=== PATIENT | male | born 1940 | race Caucasian/White ===

== ENCOUNTER 2023-06-29 18:28 | Inpatient (IN) | payer OTHER ==
[2023-06-29 20:28] LABS: Absolute Basophils 0.1 K/uL (0-0.5); Absolute Eosinophils 0.1 K/uL (0-0.5); Absolute Lymphocytes (CBC) 1.1 K/uL (0.7-4.9); Absolute Monocytes 1.3 K/uL (0.1-1.3); Absolute Neutrophil 11.1 K/uL (1.8-8.0); Basophils % 0.7 % (0-1.3); Eosinophils % 0.6 % (0-4.4); Hematocrit 45.4 % (39.6-49.0); Hemoglobin 15.3 g/dL (13.6-17.9); Lymphocytes % 8.2 % (15.3-44.8); MCH 29.7 pg (27.0-35.0); MCHC 33.7 g/dL (32.0-36.0); MCV 88.4 fL (80-100); MPV 9.2 fL (7.6-11.3); Monocytes % 9.3 % (3.3-12.3); Neutrophils % 81.2 % (41.7-73.7); Nucleated Red Blood Cells % 0.1 % (0-0); Platelets 220 thou/uL (152-406); RBC Red Blood Cell Count 5.14 M/uL (4.33-5.43); Red Cell Distribution Width 14.2 % (12.1-15.2)
[2023-06-29 20:30] LABS: Protime INR 1.85
[2023-06-29 20:48] LABS: Albumin 3.2 g/dL (3.4-5.0); Albumin/Globulin Ratio 0.7 (1.1-1.8); Anion Gap 14.3 mEq/L (5.0-15.0); Bilirubin Direct 0.2 mg/dL (0-0.2); Bilirubin Indirect, Calculated 0.2 mg/dL (0.2-0.8); Bilirubin Total 0.4 mg/dL (0.2-1.0); Globulin 4.6 g/dL (2.3-3.5); Magnesium 2.2 mg/dL (1.6-2.4); Potassium 4.3 mEq/L (3.5-5.1); Protein, Total 7.8 g/dL (6.4-8.2)
[2023-06-29 20:52] LABS: Troponin High Sensitivity 88.8 pg/mL (<58.9)
--- NOTE | 2023-06-29 21:05 | ER ---
Nurse's Notes [facility] Name: Lucho Roberts Age: 83 yrs Sex: Male : 1940 Arrival Date: 06/29/2023 Time: 18:28 Bed 9 Private MD: Crow Ramirez Diagnosis: Acute kidney failure, unspecified Presentation: 06/28 19:19 Chief complaint: Spouse and/or significant other states: WENT TO SEE HIS DOCTOR TO [facility] DISCUSS LAB WORK HE HAD DONE LAST WEEK. SAID HIS KIDNEY FUNCTION WAS BAD AND HE NEEDED TO BE ADMITTED TO THE HOSPITAL. GO TO THE ER TO GET ADMITTED. Coronavirus screen: At this time, the client does not indicate any symptoms associated with coronavirus-19. Ebola Screen: No symptoms or risks identified at this time. Initial Sepsis Screen: Does the patient meet any 2 criteria? No. Patient's initial sepsis screen is negative. Does the patient have a suspected source of infection? No. Patient's initial sepsis screen is negative. Risk Assessment: Do you want to hurt yourself or someone else? Patient reports no desire to harm self or others. 19:19 Method Of Arrival: Wheelchair jj7 19:19 Acuity: ODNTE 3 jj7 22:42 Onset of symptoms was June 29, 2023. kd3 Triage Assessment: 19:24 General: Appears in no apparent distress. comfortable, Behavior is calm, cooperative, jj7 appropriate for age. Historical: - Allergies: 19:23 No Known Allergies; jj7 - PMHx: 19:23 Congestive heart failure; Hypertensive disorder; HIGH CHOLESTEROL (Hypertensive jj7 disorder); Diabetes mellitus; - PSHx: 19:24 BACK; Appendectomy; NECK; LEFT KNEE REPLACEMENT; jj7 - Immunization history:: Client reports receiving the 2nd dose of the Covid vaccine, Pneumococcal vaccine is up to date, Flu vaccine is up to date. - Social history:: Smoking status: Patient denies any tobacco usage or history of. Patient/guardian denies using alcohol, street drugs, IV drugs. Screenin:16 [facility] ED Fall Risk Assessment (Adult) History of falling in the last 3 months, cp4 including since admission No falls in past 3 months (0 pts) Confusion or Disorientation No (0 pts) Intoxicated or Sedated No (0 pts) Impaired Gait No (0 pts) Mobility Assist Device Used No (0 pt) Altered Elimination No (0 pt) Score/Fall Risk Level 0 - 2 = Low Risk Oriented to surroundings, Maintained a safe environment, Assessed \T\ reinforced patient's understanding of fall precautions, Hourly rounding (assess needs \T\ fall precautionary measures) done. Abuse screen: Denies threats or abuse. Nutritional screening: No deficits noted. Tuberculosis screening: No symptoms or risk factors identified. Assessment: 20:16 General: Appears in no apparent distress. Behavior is calm, cooperative, appropriate cp4 for age. Pain: Denies pain. : No deficits noted. 22:40 Neuro: Level of Consciousness is awake, alert, obeys commands, Oriented to person, kd3 place, time, situation. Cardiovascular: Patient's skin is warm and dry. Respiratory: Airway is patent Trachea midline Respiratory effort is even, unlabored, Respiratory pattern is regular, symmetrical. 06/29 00:04 General: Appears in no apparent distress. Behavior is calm, cooperative, appropriate kd3 for age. Neuro: Level of Consciousness is awake, alert, obeys commands, Oriented to person, place, time, situation. Cardiovascular: Patient's skin is warm and dry. Respiratory: Airway is patent Trachea midline Respiratory effort is even, unlabored, Respiratory pattern is regular, symmetrical. Vital Signs: 06/28 19:19 BP 119 / 79; Pulse 59; Resp 17; Temp 97.8; Pulse Ox 99% ; Weight 127.01 kg; Height 6 jj7 ft. 3 in. ; 23:01 BP 128 / 77; Pulse 84; Resp 19; Pulse Ox 98% on R/A; kd3 06/29 00:05 BP 138 / 77; Pulse 98; Resp 19; Pulse Ox 99% on R/A; kd3 06/28 19:19 Body Mass Index 35.00 (127.01 kg, 190.5 cm) j7 ED Course: 06/28 18:30 Patient arrived in ED. rg4 18:30 Crow Ramirez DO is Private Physician. rg4 19:23 Triage completed. jj7 19:24 Arm band placed on right wrist. jj7 19:31 Lucina Berkowitz PA-C is [facility]. sb4 19:31 Jasen Arauz MD is Attending Physician. sb4 19:48 Inserted saline lock: 20 gauge in right forearm, using aseptic technique. Blood kd3 collected. 19:52 Laurie Bach is Primary Nurse. cp4 20:06 Basic Metabolic Panel Sent. kd3 20:06 CBC with Diff Sent. kd3 20:06 LFT's Sent. kd3 20:06 Magnesium Sent. kd3 20:06 NT PRO-BNP Sent. kd3 20:06 PT-INR Sent. kd3 20:06 Troponin HS Sent. kd3 20:06 Initial lab(s) drawn, by me, sent to lab. EKG done, by ED staff, reviewed by Lucina Berkowitz PA-C. 20:16 Bed in low position. Call light in reach. Side rails up X 1. cp4 20:16 No provider procedures requiring assistance completed. cp4 20:35 XRAY Chest (1 view) In Process Unspecified. EDMS 21:05 Carlos Ramos MD is Hospitalizing Provider. sb4 22:02 US Rp Exam Complete In Process Unspecified. EDMS 22:41 Provided Education on: asthma . kd3 22:41 IV discontinued, intact, bleeding controlled, No redness/swelling at site. Pressure kd3 dressing applied. 23:01 UAM Sent. kd3 Administered Medications: No medications were administered Medication: 20:16 VIS not applicable for this client. cp4 Outcome: 21:05 Decision to Hospitalize by Provider. sb4 22:41 Discharged to home with family, kd3 22:41 Condition: stable 22:41 Discharge instructions given to patient, family, Instructed on discharge instructions, follow up and referral plans. Demonstrated understanding of instructions, follow-up care, medications, Prescriptions given X 4, 06/29 00:34 Patient left the ED. kd3 Signatures: Dispatcher [employer] EDMS Felicia Aguilar rg4 Agnes Valenzuela RN RN kd3 Naomi Guerrero RN RN Lucina Keating PA-C PA-C sb4 Laurie Bach cp4
--- NOTE | 2023-06-29 21:06 | EDPHYS ---
Physician Documentation [facility] Name: Lucho Roberts Age: 83 yrs Sex: Male : 1940 Arrival Date: 06/29/2023 Time: 18:28 Bed 9 Private MD: Crow Ramirez ED Physician Jasen Arauz HPI: 06/28 20:18 This 83 yrs old Male presents to ER via Wheelchair with complaints of Abnormal Lab sb4 Results. 20:18 Patient had routine blood work done about a week ago and today went in to discuss the sb4 results. He was noted to have a creatinine of 5. states that he has been extremely weak today. Lab results also showed a UTI, which has not been treated with antibiotics yet. Patient has no specific complaints at this time, just reports feeling generally unwell. Historical: - Allergies: 19:23 No Known Allergies; jj7 - PMHx: 19:23 Congestive heart failure; Hypertensive disorder; HIGH CHOLESTEROL (Hypertensive jj7 disorder); Diabetes mellitus; - PSHx: 19:24 BACK; Appendectomy; NECK; LEFT KNEE REPLACEMENT; jj7 - Immunization history:: Client reports receiving the 2nd dose of the Covid vaccine, Pneumococcal vaccine is up to date, Flu vaccine is up to date. - Social history:: Smoking status: Patient denies any tobacco usage or history of. Patient/guardian denies using alcohol, street drugs, IV drugs. ROS: 20:18 Cardiovascular: Negative for chest pain, palpitations, and edema, sb4 20:18 Constitutional: Positive for fatigue, malaise, 20:18 All other systems are negative, Exam: 20:18 Constitutional: This is a well developed, well nourished patient who is awake, alert, sb4 and in no acute distress. Head/Face: Normocephalic, atraumatic. Eyes: Extra-ocular motions intact. Periorbital areas with no swelling, redness, or edema. ENT: Mucous membranes moist. Cardiovascular: Regular rate and rhythm with a normal S1 and S2. Respiratory: Lungs have equal breath sounds bilaterally, clear to auscultation and percussion. No rales, rhonchi or wheezes noted. No increased work of breathing, no retractions or nasal flaring. Abdomen/GI: Soft, non-tender, no distension. Skin: Warm, dry with normal turgor. Normal color with no rashes, no lesions, and no evidence of cellulitis. MS/ Extremity: Pulses equal, no cyanosis. Neurovascular intact. Full, normal range of motion. Neuro: Awake and alert, GCS 15, oriented to person, place, time, and situation. Motor strength 5/5 in all extremities. Sensory grossly intact. Vital Signs: 19:19 BP 119 / 79; Pulse 59; Resp 17; Temp 97.8; Pulse Ox 99% ; Weight 127.01 kg; Height 6 7 ft. 3 in. ; 23:01 BP 128 / 77; Pulse 84; Resp 19; Pulse Ox 98% on R/A; kd3 06/29 00:05 BP 138 / 77; Pulse 98; Resp 19; Pulse Ox 99% on R/A; kd3 06/28 19:19 Body Mass Index 35.00 (127.01 kg, 190.5 cm) [facility] MDM: 06/28 19:31 Patient medically screened. sb4 21:01 Data reviewed: vital signs, nurses notes, lab test result(s), EKG, radiologic studies, sb4 and as a result, I will admit patient. Consideration of Admission/Observation Patient was admitted/placed on observation. Counseling: I had a detailed discussion with the patient and/or guardian regarding the historical points, exam findings, and any diagnostic results supporting the discharge/admit diagnosis, lab results, radiology results, the need for further work-up and treatment in the hospital. 06/28 19:48 Order name: Basic Metabolic Panel; Complete Time: 20:53 sb4 06/28 19:48 Order name: CBC with Diff; Complete Time: 20:31 sb4 06/28 19:48 Order name: LFT's; Complete Time: 20:53 sb4 06/28 19:48 Order name: Magnesium; Complete Time: 20:53 sb4 06/28 19:48 Order name: NT PRO-BNP; Complete Time: 20:53 sb4 06/28 19:48 Order name: PT-INR; Complete Time: 20:31 sb4 06/28 19:48 Order name: Troponin HS; Complete Time: 20:53 sb4 06/28 19:48 Order name: UAM; Complete Time: 23:25 sb4 06/28 23:09 Order name: CBC with Automated Diff EDMS 06/28 23:09 Order name: CBC with Automated Diff [facility] 06/28 23:09 Order name: Comprehensive Metabolic Panel [facility] 06/28 23:09 Order name: Comprehensive Metabolic Panel [facility] 06/28 23:09 Order name: Lactate w/ 2H reflex if indic. EDMS 06/28 23:09 Order name: Lactate w/ 2H reflex if indic. [facility] 06/28 23:09 Order name: Protime (+INR) [facility] 06/28 23:09 Order name: Protime (+INR) [facility] 06/28 23:09 Order name: PTT, Activated Partial Thromb EDMS 06/28 23:09 Order name: PTT, Activated Partial Thromb [facility] 06/28 23:09 Order name: Troponin High Sensitivity [facility] 06/28 23:09 Order name: Troponin High Sensitivity [facility] 06/28 23:09 Order name: Uric Acid [facility] 06/28 23:09 Order name: Uric Acid [facility] 06/28 19:48 Order name: XRAY Chest (1 view); Complete Time: 22:14 sb4 06/28 21:03 Order name: US Rp Exam Complete; Complete Time: 22:30 sb4 06/28 19:48 Order name: EKG; Complete Time: 19:49 sb4 06/28 23:09 Order name: CONS Physician Consult [facility] 06/28 19:48 Order name: EKG - Nurse/Tech; Complete Time: 20:06 sb4 06/28 19:48 Order name: IV Saline Lock; Complete Time: 19:52 sb4 06/28 19:48 Order name: Labs collected and sent; Complete Time: 20:06 sb4 EC:18 Rate is 92 beats/min. Rhythm is irregularly irregular, A fib. QRS interval is normal at sb4 108 msec. QT interval is normal at 372 msec. No Q waves. T waves are Normal. No ST changes noted. Clinical impression: Atrial Fibrillation and No evidence of ischemia. Interpreted by me. Reviewed by me. Administered Medications: No medications were administered Disposition Summary: 06/29/23 21:05 Hospitalization Ordered Notes: Hospitalization Status: Inpatient Admission sb4 Provider: Carlos Ramos4 Location: Telemetry/MedSurg (Inpatient) sb4 Condition: Fair sb4 Problem: new sb4 Symptoms: are unchanged sb4 Bed/Room Type: Standard sb4 Room Assignment: 420(06/29/23 23:22) rv1 Diagnosis - Acute kidney failure, unspecified sb4 Forms: - Medication Reconciliation Form sb4 - SBAR form sb4 - Leadership Thank You Letter sb4 Signatures: Dispatcher [employer] Naomi Holloway RN RN jj7 Lucina Berkowitz, CHON GIVENS sb4 Zhanna Benavides rv1 Corrections: (The following items were deleted from the chart) 23: 21:05 sb4 rv1 06/29 00:04 06/28 23:03 Clara ordered. sb4 sb4
--- NOTE | 2023-06-29 22:14 | RAD REPORT ---
EXAM DESCRIPTION: Khoi Single View06/29/2023 8:33 pm CLINICAL HISTORY: CHEST PAIN COMPARISON: Abdomen 1 View (KUB) dated 11/09/2015 TECHNIQUE: Portable AP view of the chest. FINDINGS: The lungs are clear. No pneumothorax or effusion. The cardiomediastinal contours are unre markable. IMPRESSION: No acute cardiopulmonary process.
--- NOTE | 2023-06-29 22:27 | RAD REPORT ---
EXAM DESCRIPTION: US - Renal Ultrasound-Complete - 06/29/2023 10:00 pm CLINICAL HISTORY: rule out obstruction COMPARISON: Abdomen Pelvis Wo Contrast dated 10/31/2015 TECHNIQUE: Sonographic grayscale and color flow images of the kidneys and bladder were obtained. FINDINGS: Both kidneys are small in size specially on the right, with diffusely increased cortical e chogenicity and poor corticomedullary differentiation. The right kidney measures 5.8 cm in long axis. No hydronephrosis, focal mass, or echogenic calculi. The left kidney measures 8.9 cm in long axis. Parapelvic 1.8 cm anechoic cyst. No hydronephrosis, foc al mass, or echogenic calculi. The urinary bladder is without gross abnormality seen. Moderate prostatomegaly. IMPRESSION: Atrophic changes of the kidneys with increased cortical echogenicity, findings suggestiv e of chronic renal disease.
--- NOTE | 2023-06-29 23:02 | P.HP ---
Certification for Inpatient Patient admitted to: Inpatient With expected LOS: >2 Midnights Patient will require the following post-hospital care: None Practitioner: I am a practitioner with admitting privileges, knowledge of patient current condition, hospital course, and medical plan of care. Services: Services provided to patient in accordance with Admission requirements found in Title 42 Section 412.3 of the Code of Federal Regulations Patient History Date of Service: 06/29/23 Reason for admission: Acute kidney injury Allergies No Known Allergies Allergy (Verified 06/30/23 00:34) - Past Medical/Surgical History -: Chronic kidney disease -: History of hypertension -: History of hyperlipidemia -: History of type 2 diabetes -: History of congestive heart failure -: Back surgery -: Neck surgery -: Knee surgery -: Appendectomy -: Left knee replacement - Family History Father Family History: Reviewed- Non-Contributory - Social History Smoking Status: Former smoker Alcohol use: No CD- Drugs: No Review of Systems 10-point ROS is otherwise unremarkable Physical Examination - Vital Signs Temperature: 98 F Blood Pressure: 150/80 Pulse: 90 Respirations: 18 Pulse Ox (%): 96 - Physical Exam General: Alert, In no apparent distress, Oriented x3 HEENT: Atraumatic, PERRLA, Mucous membr. moist/pink, EOMI, Sclerae nonicteric Neck: Supple, 2+ carotid pulse no bruit, No LAD, Without JVD or thyroid abnormality Respiratory: Clear to auscultation bilaterally, Normal air movement Cardiovascular: Regular rate/rhythm, Normal S1 S2, Systolic murmur Gastrointestinal: Normal bowel sounds, Soft and benign, Non-distended, No tenderness Musculoskeletal: No clubbing, No swelling, No tenderness Integumentary: No rashes Neurological: Normal gait, Normal speech, Normal strength at 5/5 x4 extr, Normal tone, Sensation intact, Cranial nerves 3-12 intact, Normal affect Lymphatics: No axilla or inguinal lymphadenopathy - Studies Laboratory Data (last 24 hrs) 06/29/23 06/29/23 06/29/23 20:00 20:00 20:00 WBC 13.70 H Hgb 15.3 Hct 45.4 Plt Count 220 PT 20.0 H INR 1.85 Sodium 139 Potassium 4.3 BUN 74 H Creatinine 5.59 H Glucose 180 H Magnesium 2.2 Total Bilirubin 0.4 AST 78 H ALT 78 H Alkaline Phosphatase 118 H Assessment & Plan - Problems (Diagnosis) (1) KIKI (acute kidney injury) Current Visit: Yes Status: Acute (2) CKD (chronic kidney disease) stage 3, GFR 30-59 ml/min Current Visit: Yes Status: Acute (3) HTN (hypertension) Current Visit: Yes Status: Acute (4) CHF (congestive heart failure) Current Visit: Yes Status: Acute (5) Type 2 diabetes mellitus Current Visit: Yes Status: Acute (6) NSTEMI (non-ST elevated myocardial infarction) Current Visit: Yes Status: Acute - Plan Plan: 1. Acute on chronic kidney failure; continue with IV fluids and will get a renal ultrasound. Will place a Elizabeth catheter and will get strict I's and O's. Nephrology consultation as well. We will check urine analysis at this time. 2. History of hypertension; continue with antihypertensives 3. History of type 2 diabetes; strict blood sugar control 4. History of heart failure with diastolic dysfunction/HFpEF; continue with diuretics 5. Elevated troponin; most likely type II myocardial infarction. Will consult cardiology for further evaluation patient denies any chest pain. 6. GI and DVT prophylaxis Discharge Plan: Home Plan to discharge in: 24 Hours - Advance Directives Does patient have a Living Will: No Does patient have a Durable POA for Healthcare: No - Code Status/Comfort Care Code Status Assessed: Yes Code Status: Full Code Critical Care: No Time Spent Managing PTS Care (In Minutes): 45
[2023-06-29] MEDS ORDERED: ACETAMINOPHEN 500 MG TAB PO PRN (23:03)
[2023-06-29] MEDS ORDERED: ONDANSETRON 4 MG/2 ML VIAL IV PRN (23:03)
[2023-06-29 23:23] LABS: Specific Gravity 1.016 (1.005-1.030); Sqamous Epithelial <5 /HPF (None Seen); Urine Bacteria <20 /HPF (<20); Urine Bilirubin NEGATIVE (Negative); Urine Blood 3+ (Negative); Urine Clarity Extremely Turbid (Clear); Urine Color Light-Orange (Yellow); Urine Culture Reflex Order NOT NEEDED; Urine Glucose TRACE (Negative); Urine Granular Casts 0-5 /LPF (None Seen); Urine Ketones NEGATIVE (Negative); Urine Micro Reflex YN NO BILL MICROSCOPIC; Urine Mucus 1+ /HPF (None Seen); Urine Nitrite NEGATIVE (Negative); Urine Protein 2+ (Negative); Urine Urobilinogen Normal (Normal); Urine WBC <5 /HPF (<5); Urine pH 5.5 (5.0-7.0)
[2023-06-30] MEDS: NA CHLORIDE 0.9% 1,000 ML IV SCH (01:58)
[2023-06-30] MEDS: MORPHINE 2 MG/ML SYR IV PRN (05:18)
[2023-06-30 07:57] LABS: Absolute Basophils 0.1 K/uL (0-0.5); Absolute Eosinophils 0.1 K/uL (0-0.5); Absolute Lymphocytes (CBC) 1.5 K/uL (0.7-4.9); Absolute Monocytes 1.4 K/uL (0.1-1.3); Absolute Neutrophil 8.6 K/uL (1.8-8.0); Basophils % 0.7 % (0-1.3); Hematocrit 42.1 % (39.6-49.0); Hemoglobin 14.3 g/dL (13.6-17.9); Lymphocytes % 12.6 % (15.3-44.8); MCH 29.9 pg (27.0-35.0); MCHC 33.9 g/dL (32.0-36.0); MCV 88.2 fL (80-100); MPV 8.4 fL (7.6-11.3); Monocytes % 12.1 % (3.3-12.3); Neutrophils % 73.6 % (41.7-73.7); Platelets 200 thou/uL (152-406); RBC Red Blood Cell Count 4.77 M/uL (4.33-5.43); Red Cell Distribution Width 14.4 % (12.1-15.2)
[2023-06-30 08:01] LABS: PT Prothrombin Time 18.3 SECONDS (9.5-12.5); PTT, Activated Partial Thromb 34.2 SECONDS (24.3-36.9); Protime INR 1.69
[2023-06-30 08:22] LABS: Albumin 2.9 g/dL (3.4-5.0); Albumin/Globulin Ratio 0.7 (1.1-1.8); Anion Gap 12.7 mEq/L (5.0-15.0); Bilirubin Total 0.4 mg/dL (0.2-1.0); Globulin 3.9 g/dL (2.3-3.5); Potassium 3.7 mEq/L (3.5-5.1); Protein, Total 6.8 g/dL (6.4-8.2); Uric Acid 3.8 mg/dL (3.5-7.2)
[2023-06-30 08:34] LABS: Troponin High Sensitivity 199.8 pg/mL (<58.9)
[2023-06-30] MEDS ORDERED: INFLUENZA VACCINE (for 6+ mo) 0.5 ML DOSE IMVAC ONE (09:00)
[2023-06-30] MEDS ORDERED: PNEUMOCOCCAL VACCINE 0.5 ML IMVAC ONE (09:00)
--- NOTE | 2023-06-30 09:47 | P.PN ---
Date of Service: 06/30/23 Subjective: denies chest pain. reports h/o afib states his legs were giving out under him, feeling weak nocturia - ~3-4x/night; no hesitancy in the past ROS: 10 point ROS as noted above, otherwise negative Physical Exam: GEN: Alert, oriented, NAD HEENT: Normal conjunctiva, sclera anicteric, CV: irregularly irregular rhythm, trace b/l pedal edema Pulm: Nonlabored respirations on room air, clear bilaterally ABD: soft, nontender, nondistended Integumentary: No rashes Neuro: Normal speech, normal affect Problem List: KIKI on CKD3, unclear etiology NSTEMI, suspect demand ischemia Atrial fibrillation, chronic Chronic diastolic CHF HFpEF Hypertension Hyperlipidemia hx of IDDM2 KIKI on CKD3, unclear etiology Cr last year between 1.5-1.6 [address] hasn't [address] Dr[address] Ramirez in office since last November. Reports worsening weakness, significant weight loss past few months. Reports had urinalysis as outpatient and was told he had UTI along with KIKI. Doesn't recall taking any new antibiotic. Urinalysis in ED without LE, bacteria < 20, <5 WBC difficulty urinating in ED, 600cc after straight cath renal u/s (06/28): atrophic changes of kidneys with increased cortical echogen icity. 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 Patient agreeable to dialysis as last resort per nephro f/u labs ordered continue IVF with LR 100ml/hr Creatinine 5.59 -> 5.29 (06/29) continue to monitor renal function PRN analgesics / antiemetics NSTEMI, suspect demand ischemia Atrial fibrillation, chronic Chronic diastolic CHF CXR (06/28): no acute findings troponins elevated, monitor on telemetry Cardiology consulted Patient in a-fib, reports history of afib, on metoprolol and eliquis; resume home metoprolol heparin drip for now given worsening renal function and possibility of needing HD cath placement Hypertension Hyperlipidemia confirm home meds hx of IDDM2 A1c 5.6-7.1% over past 1+ year confirm home meds VTE: heparin drip (started 06.29) Code: Full Dispo: Home, ~3-4 days
[2023-06-30] MEDS: Ringers Lactate 1,000 ML IV SCH (10:21)
--- NOTE | 2023-06-30 10:35 | P.CNS ---
Date of Consult: 06/30/23 Reason for Consult: ARF on CKD Requesting Physician: Carlos Ramos Chief Complaint: Acute kidney injury History of Present Illness: Patient is an 83-year-old gentleman with a history of hypertension, a hx of Type II DM/IDDM with A1c levels of 5.6-7.1% over the past year plus, a hx of CKD III with Cr level last year ranging from 1.5-1.6 mg/dl but not seen in clinic with Dr. Ramirez since last Nov. Pt reports significant weight loss in recent months, progressive weakness, prior falls. His condition worsened over the past few days and he had recent labs done which came to the attention of Dr. Ramirez yesterday so he was referred to the ER. Seen lying in bed, pt cites pain in the hip which is chronic, he sees pain specialist. He has pain in his legs when moved for exam. He denies NSAIDs use/abuse. He acknowledges some shortness of breath on exertion. He acknowledges some reduced UOP but denies hematuria. Renal function tests showing renal failure discussed in detail. Allergies No Known Allergies Allergy (Verified 06/30/23 00:34) - Past Medical/Surgical History Diabetic: Yes -: Chronic kidney disease followed by Dr. Ramirez -: History of hypertension -: History of hyperlipidemia -: History of type 2 diabetes -: History of congestive heart failure -: Back surgery -: Neck surgery -: Knee surgery -: Appendectomy -: Left knee replacement - Family History Father Family History: Reviewed- Non-Contributory Notes: No mention of renal disorders - Social History Alcohol use: No CD- Drugs: No Place of Residence: Home Review of Systems General: Weakness, As per HPI Eyes: Unremarkable ENT: Unremarkable Respiratory: Shortness of Breath, As per HPI Cardiovascular: Light Headedness, As per HPI Gastrointestinal: Unremarkable Genitourinary: As per HPI Musculoskeletal: Other (Hip pain, chronic pain ) Integumentary: Unremarkable Neurological: Weakness, Other (Falls) Physical Examination Temp Pulse Resp BP Pulse Ox 97.1 F 77 14 140/85 96 06/30/23 08:00 06/30/23 08:00 06/30/23 08:00 06/30/23 08:00 06/30/23 08:00 General: In no apparent distress, Cooperative, Other (Appears chronically ill) HEENT: Atraumatic, Normocephalic, EOMI, Sclerae nonicteric Neck: Supple Respiratory: Normal air movement, Other (Non tachypnec, no rales ) Cardiovascular: Regular rate/rhythm, Other (No loud murmurs, rubs) Gastrointestinal: Soft and benign, Non-distended, No tenderness, No guarding Musculoskeletal: No swelling, No contractures, Other (Feel cooler to touch) Integumentary: No rashes, Other (shins smooth, shiny) Laboratory Data (last 24 hrs) 06/29/23 06/29/23 06/29/23 20:00 20:00 20:00 WBC 13.70 H Hgb 15.3 Hct 45.4 Plt Count 220 PT 20.0 H INR 1.85 Sodium 139 Potassium 4.3 BUN 74 H Creatinine 5.59 H Glucose 180 H Magnesium 2.2 Total Bilirubin 0.4 AST 78 H ALT 78 H Alkaline Phosphatase 118 H Conclusions/Impression: A/P) 1. Sub-acute Stage III renal failure on underlying CKD Stage III unspecified (2nd to chronic HTN/DM). Unclear exact etiology of the dramatic worsening of renal function since last summer but likely multifactorial and may include component of pre-renal azotemia but no dramatic improvement in numbers with initial IVF hydration.2 2. Renal u/s notable for small kidneys, Rt especially, echogenic and c/w more advanced medical renal disease than what his levels suggested last year. 3. 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 Pt reluctantly agrees to dialysis as a measure of last resort. Will cont to discuss further. 4. Urine study shows some microscopic hematuria unspecified. Spot urine studies as OP including recent have not shown massive proteinuria. 5. Will nonetheless send off serologic w/u with RF, WENDY, ANCA, complement and other 6. With weight loss and other symptoms, occult malignancy may also be a possibility 7. Mild hypercalcemia with total corrected Ca > ULN, check ionized Ca. PTH was non suppressed on OP check at 226 up from 83 last year but also coinciding with worsening of renal function. 8. Cont IVF hydration but switch to LR IVF 9. Dose meds for reduced CrCl Thank you for the referral, Dr. Pete covering for our group this weekend Cuco Alvares MD, [facility]
--- NOTE | 2023-06-30 11:51 | EKG ---
Test Date: 2023-06-29 Test Time: 19:03:17 [employer] Clerk: SALVATORE MEASUREMENT RESULTS: Intervals: Rate: 92 CA: QRSD: 108 QT: 372 QTc: 460 [place]: P: CA: QRS: -19 T: 75 INTERPRETIVE STATEMENTS: Atrial fibrillation Abnormal ECG Compared to ECG 06/27/2022 12:32:02 Ventricular premature complex(es) no longer present Left-axis deviation no longer present Myocardial infarct finding no longer present Electronically Signed On 06-30-23 11:49:00 CDT by Edenilson Carlisle
--- NOTE | 2023-06-30 12:07 | ECHO ---
HEIGHT: 6 ft 3 in WEIGHT: 280 lb 0 oz DATE OF STUDY: 06/30/[address]: Cuco Alvares 2-DIMENSIONAL: YES M.MODE: YES DOPPLER: YES COLOR FLOW: YES TDS: PORTABLE: YES DEFINITY: BUBBLE STUDY: DIAGNOSIS: NON ST ELEVATION MYOCARDIAL INFARCTION/ SHORTNESS OF BREATH/ WEAKNESS/ OTHER CARDIAC HISTORY: CATHERIZATION: SURGERY: PROSTHETIC VALVE: PACEMAKER: MEASUREMENTS (cm) DIASTOLIC (NORMALS) SYSTOLIC (NORMALS) IVSd 1.2 (0.6-1.2) LA Diam 5.3 (1.9-4.0) LVEF 66% LVIDd 5.0 (3.5-5.7) LVIDs 3.2 (2.0-3.5) %FS 37% LVPWd 1.3 (0.6-1.2) Ao Diam 3.4 (2.0-3.7) 2 DIMENSIONAL ASSESSMENT: RIGHT ATRIUM: NORMAL LEFT ATRIUM: SEVERELY DILATED RIGHT VENTRICLE: NORMAL LEFT VENTRICLE: LEFT VENTRICULAR HYPERTROPHY TRICUSPID VALVE: MILD TRICUSPID REGURGITATION MITRAL VALVE: MILD MITRAL REGURGITATION PULMONIC VALVE: NORMAL AORTIC VALVE: NORMAL PERICARDIAL EFFUSION: NONE AORTIC ROOT: NORMAL LEFT VENTRICULAR WALL MOTION: NORMAL DOPPLER/COLOR FLOW: SEE BELOW COMMENTS: 1. NORMAL LEFT VENTRICULAR EJECTION FRACTION 60-65% 2. ATRIAL FIBRILLATION 3. SEVERELY DILATED LEFT ATRIUM 4. MILD CONCENTRIC LEFT VENTRICULAR HYPERTROPHY 5. MILD TRICUSPID REGURGITATION 6. MILD MITRAL REGURGITATION TECHNOLOGIST: RONALDO HENNESSY
[2023-06-30 12:10] LABS: Phosphorus 4.8 mg/dL (2.5-4.9)
[2023-06-30 12:38] LABS: Rheumatoid Factor NEG (NEG)
--- NOTE | 2023-06-30 12:57 | CON ---
Date of Consultation: 06/30/2023 Reason For Consultation: Atrial fibrillation. History Of Present Illness: This is an 83-year-old male, history of hypertension, dyslipidemia, diab etes, congestive heart failure, presented to the emergency room because of abnormal blood work, creat inine went up to 5. The patient is feeling weak. Did not have any palpitations or chest pain or migel rtness of breath. Creatinine was high at 5. Baseline is around 1.3. Denies having any cardiac comp laints at the present time. Past Medical History: As outlined above in the HPI. Medications: Refer to reconciliation sheet for detailed list. Allergies: NO KNOWN DRUG ALLERGIES. Family History: No premature coronary disease or cancer. Social History: Does not smoke or drink. Does not use any drugs. Review of Systems: All systems were reviewed, they were negative except what was mentioned in HPI. Physical Examination: Vital Signs: Reviewed. Head and Neck: Pupils are equal, reactive to light. Intact eye movements. No JVD. No cervical lym phadenopathy. Neck: Supple. Thyroid is not enlarged. Lungs: Clear to auscultation bilaterally. No rhonchi, rales, or crackles. No accessory muscle use. Heart: Irregular. No extra sounds. Abdomen: Soft, nontender. Bowel sounds positive. No organomegaly. No masses or hernia. No rigidi ty or rebound. Extremities: No edema, clubbing, cyanosis. Intact pulses. Skin: No rash. Neurologic: Alert, awake, oriented x3. No acute focal deficits appreciated. Investigations: BUN 87, creatinine is 5.29. Troponin is 1.99 and hemoglobin 14.3. Assessment And Recommendations: 1.Atrial fibrillation, rate is controlled. Recommend to start metoprolol-XL 25 mg daily and low-dos e Eliquis 2.5 mg twice a day and obtain an echo. 2.Elevated troponin. No chest pain. This is likely demand. Obtain an echo and plan for a stress t est which can be done as an outpatient. 3.Hypertension. Blood pressure is controlled. 4.Advanced kidney failure. Nephrology is on board. The patient might require dialysis. SR/MODL Voice ID: [id number] Report ID: [id number]
[2023-06-30] MEDS: METOPROLOL TAR 50 MG TAB PO SCH (15:04)
[2023-06-30] MEDS: HEPARIN/D5W 25,000 UNIT/500 ML BAG IV SCH (20:08)
[2023-06-30] MEDS: TAMSULOSIN 0.4 MG SR CAP PO SCH (20:10)
[2023-06-30] MEDS: MELATONIN 3 MG TABLET PO SCH (20:10)
[2023-07-01 03:19] VITALS: BMI 34.9
[2023-07-01 07:24] LABS: Hemoglobin 14.7 g/dL (13.6-17.9); MCH 29.6 pg (27.0-35.0); MCHC 33.4 g/dL (32.0-36.0); MCV 88.6 fL (80-100); MPV 8.7 fL (7.6-11.3); Platelets 209 thou/uL (152-406); RBC Red Blood Cell Count 4.96 M/uL (4.33-5.43); Red Cell Distribution Width 14.3 % (12.1-15.2)
[2023-07-01 08:06] LABS: Albumin/Globulin Ratio 0.7 (1.1-1.8); Anion Gap 13.8 mEq/L (5.0-15.0); Bilirubin Total 0.5 mg/dL (0.2-1.0); Globulin 4.2 g/dL (2.3-3.5); Magnesium 2.1 mg/dL (1.6-2.4); Potassium 3.8 mEq/L (3.5-5.1); Protein, Total 7.2 g/dL (6.4-8.2)
--- NOTE | 2023-07-01 10:58 | P.PN ---
Date of Service: 07/01/23 Subjective: no significant change, stable no new/worsening symptoms on heparin drip for afib ROS: 10 point ROS as noted above, otherwise negative Physical Exam: GEN: Alert, oriented, NAD HEENT: Normal conjunctiva, sclera anicteric, CV: irregularly irregular rhythm, trace b/l pedal edema Pulm: Nonlabored respirations on room air, clear bilaterally ABD: soft, nontender, nondistended Integumentary: No rashes Neuro: Normal speech, normal affect Problem List: KIKI on CKD3, unclear etiology elevated CPK NSTEMI, suspect demand ischemia Atrial fibrillation, chronic Chronic diastolic CHF HFpEF Hypertension Hyperlipidemia hx of IDDM2 KIKI on CKD3, unclear etiology elevated CPK Cr last year between 1.5-1.6 [address] hasn't seen Dr[address] Ramirez in office since last November. Reports worsening weakness, significant weight loss past few months. Reports had urinalysis as outpatient and was told he had UTI along with KIKI. Doesn't recall taking any new antibiotic. Urinalysis in ED without LE, bacteria < 20, <5 WBC difficulty urinating in ED, 600cc after straight cath renal u/s (06/28): atrophic changes of kidneys with increased cortical echogenicity. 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 Patient agreeable to dialysis as last resort per nephro f/u labs ordered continue IVF with LR 100ml/hr Creatinine improving 5.29 -> 4.87, CPK worse 2970 -> 4864 (06/30) continue to monitor renal function PRN analgesics / antiemetics NSTEMI, suspect demand ischemia Atrial fibrillation, chronic Chronic diastolic CHF CXR (06/28): no acute findings troponins elevated, monitor on telemetry Cardiology consulted Patient in a-fib, reports history of afib, on metoprolol and eliquis; resume home metoprolol heparin drip for now given worsening renal function and possibility of needing HD cath placement transaminitis AST 78 / ALT 78 / ALP 118 on admission rising CPK unclear etiology, ?rhabdo, breakdown, ?dehydrated, statin-induced? patient is on statin and acarbose, held on admission Trend LFTS; slightly worse (06/30) trend cpk Hypertension Hyperlipidemia confirm home meds hx of IDDM2 A1c 5.6-7.1% over past 1+ year confirm home meds. Glc readings mostly wnl in low 100s this hospitalization VTE: heparin drip (started 06/29) Code: Full Dispo: Home, ~3-4 days
--- NOTE | 2023-07-01 15:06 | PN ---
Date of Progress Note: 07/01/2023 Subjective: The patient was seen and examined at bedside. He denies any complaints, but he is a poo r historian in general. No overnight events were noted. He remains on IV fluids and wants to urinat e. Physical Examination: Vital Signs: Temperature of 96.8, pulse rate of 90, respiratory rate of 15, and blood pressure of 14 1/77. He is saturating 97% on room air. General: He appears in no acute distress. HEENT: Oral mucosa is dry. Atraumatic head. Lungs: Clear to auscultation. Abdomen: Soft and nontender. Heart: Regular rate and rhythm. Extremities: No evidence of edema. Laboratory Data: Creatinine of 4.87 which is slightly better compared to 5.2. LFTs are showing elev ated AST of 133, elevated ALT of 80, which seemed persistently elevated. Troponin was also noted to be elevated. Albumin was 3. CBC showing WBC count of 13,000 with stable hemoglobin, hematocrit, and platelet count. Current Medications: Heparin drip, LR at 100 cc an hour, metoprolol, morphine p.r.n., pneumococcal v accine, and tamsulosin. Imaging: He had a renal ultrasound which showed atrophic changes in the kidneys with increased echog enicity suggestive of chronic kidney disease. Impression: 1.Acute on chronic renal insufficiency. Unclear if the patient has progressed to ESRD versus this i s an KIKI, but creatinine seems to be slightly better at this time. He clinically appears very volume depleted. Hence, I will continue with the IV fluids and monitor him closely. No emergent need for renal replacement therapy at this time. 2.NSTEMI. Suspect demand ischemia. Being clinically treated with heparin drip and other conservati ve management. 3.Chronic diastolic heart failure. Chest x-ray showed no signs of any pulmonary edema and he also h as clinically no signs of any volume overload. Hence, I will continue with the fluids and monitor hi m. 4.Increased LFTs. Continue to monitor. Plan: Overall the patient is clinically stable. Renal function is slightly better. No acute need f or dialysis at this time. Continue IV hydration and monitor him. VV/MODL Voice ID: [id number] Report ID: [id number]
[2023-07-01] MEDS: HYDROCODONE/APAP 10/325 TAB PO PRN (15:23)
--- NOTE | 2023-07-02 10:13 | P.PN ---
Date of Service: 07/02/23 Subjective: doesn't feel anything is better or worse denies muscle / cramping pains. Denies falling at home reports dark colored urine intermittently for months no nausea/vomiting ROS: 10 point ROS as noted above, otherwise negative Physical Exam: GEN: Alert, oriented, NAD HEENT: Normal conjunctiva, sclera anicteric, CV: irregularly irregular rhythm, trace b/l pedal edema Pulm: Nonlabored respirations on room air, clear bilaterally ABD: soft, nontender, nondistended Neuro: Normal speech, normal affect Problem List: KIKI on CKD3, unclear etiology elevated CPK NSTEMI, suspect demand ischemia Atrial fibrillation, chronic Chronic diastolic CHF HFpEF Hypertension Hyperlipidemia hx of IDDM2 KIKI on CKD3, unclear etiology elevated CPK Cr last year between 1.5-1.6 [address] hasn't [address] Dr[address] Ramirez in office since last November. Reports worsening weakness, significant weight loss past few months. Reports had urinalysis as outpatient and was told he had UTI along with KIKI. Doesn't recall taking any new antibiotic. Urinalysis in ED without LE, bacteria < 20, <5 WBC difficulty urinating in ED, 600cc after straight cath renal u/s (06/28): atrophic changes of kidneys with increased cortical echogenicity. 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 Patient agreeable to dialysis as last resort per nephro f/u labs ordered continue IVF per nephro Creatinine improving 5.29 -> 4.87, CPK worse 2970 -> 4864 (06/30), possibly from statin use repeat labs pending continue to monitor renal function PRN analgesics / antiemetics NSTEMI, suspect demand ischemia Atrial fibrillation, chronic Chronic diastolic CHF CXR (06/28): no acute findings troponins elevated, monitor on telemetry Cardiology consulted Patient in a-fib, reports history of afib, on metoprolol and eliquis; resume home metoprolol heparin drip for now given worsening renal function and possibility of needing HD cath placement rate controlled transaminitis AST 78 / ALT 78 / ALP 118 on admission rising CPK unclear etiology, ?rhabdo, breakdown, ?dehydrated, statin-induced? patient is on statin and acarbose, held on admission Trend LFTS; slightly worse (06/30) trend cpk repeat labs pending Hypertension Hyperlipidemia confirm home meds, hold for now hx of IDDM2 A1c 5.6-7.1% over past 1+ year confirm home meds. Glc readings mostly wnl in low 100s this hospitalization VTE: heparin drip (started 06/29) Code: Full Dispo: Home, ~2-3 days
[2023-07-02 15:11] LABS: Hematocrit 41.4 % (39.6-49.0); Hemoglobin 13.7 g/dL (13.6-17.9); MCH 29.3 pg (27.0-35.0); MCHC 33.1 g/dL (32.0-36.0); MCV 88.8 fL (80-100); MPV 8.9 fL (7.6-11.3); Platelets 171 thou/uL (152-406); RBC Red Blood Cell Count 4.66 M/uL (4.33-5.43); Red Cell Distribution Width 14.5 % (12.1-15.2)
--- NOTE | 2023-07-02 16:42 | PN ---
Date of Progress Note: 07/02/2023 Subjective: The patient was seen and examined at bedside. He is doing okay, but his is at beds willian. He is still feeling very, very weak and confused. Physical Examination: Vital Signs: Reviewed and are stable. General: He appears in no acute distress. LUNGS: Clear to auscultation. Abdomen: Soft. Extremities: Showed no evidence of edema. Laboratory Data: Still pending at this time. Current Medications: Reviewed. Impression: 1.Acute on chronic renal insufficiency. The patient was noted to have bilateral shrunken kidneys, m ay need dialysis, but we will monitor labs and followup. 2.Severe debility and weakness. We will need physical therapy evaluation and will possibly need tejas cement. 3.Lgo-NU-ozbgfumao myocardial infarction secondary to demand ischemia. 4.Atrial fibrillation, which is chronic, rate controlled. 5.Transaminitis. Monitor LFTs and statins have been discontinued. Plan: Overall, patient is clinically stable. Continue IV fluids. Monitor labs and we will decide o n dialysis based on the trend of creatinine. Plan was discussed with the patient's at the bedside. All questions were answered. VV/MODL Voice ID: [id number] Report ID: [id number]
[2023-07-02 16:50] LABS: Albumin 2.7 g/dL (3.4-5.0); Albumin/Globulin Ratio 0.7 (1.1-1.8); Anion Gap 12.6 mEq/L (5.0-15.0); Bilirubin Total 0.4 mg/dL (0.2-1.0); Globulin 3.9 g/dL (2.3-3.5); Magnesium 1.7 mg/dL (1.6-2.4); Potassium 3.6 mEq/L (3.5-5.1); Protein, Total 6.6 g/dL (6.4-8.2)
--- NOTE | 2023-07-03 08:06 | P.PN ---
Date of Service: 07/03/23 Subjective: feels ~same as yesterday doesn't feel any significant change in condition denies difficulty urinating. reported yellow in color pain when turning per shift summary denies trouble breathing ROS: 10 point ROS as noted above, otherwise negative Physical Exam: GEN: Alert, oriented, NAD HEENT: Normal conjunctiva, sclera anicteric, CV: irregularly irregular rhythm, trace b/l pedal edema Pulm: Nonlabored respirations on room air, clear bilaterally ABD: soft, nontender, nondistended Neuro: Normal speech, normal affect Problem List: KIKI on CKD3, unclear etiology elevated CPK NSTEMI, suspect demand ischemia Atrial fibrillation, chronic Chronic diastolic CHF HFpEF transaminitis Hypertension Hyperlipidemia hx of IDDM2 KIKI on CKD3, unclear etiology elevated CPK Cr last year between 1.5-1.6 [address] hasn't [address] Dr[address] Ramirez in office since last November. Reports worsening weakness, significant weight loss past few months. Reports had urinalysis as outpatient and was told he had UTI along with KIKI. Doesn't recall taking any new antibiotic. Urinalysis in ED without LE, bacteria < 20, <5 WBC difficulty urinating in ED, 600cc after straight cath renal u/s (06/28): atrophic changes of kidneys with increased cortical echogenicity. 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 Patient agreeable to dialysis as last resort per nephro continue IVF per nephro elevated cpk - possibly from statin Creatinine improving 4.21 -> 3.66, CPK worse 1900 -> 3084 (07/02) continue to monitor renal function PRN analgesics / antiemetics NSTEMI, suspect demand ischemia Atrial fibrillation, chronic Chronic diastolic CHF CXR (06/28): no acute findings troponins elevated, monitor on telemetry Cardiology consulted Patient in a-fib, reports history of afib, on metoprolol and eliquis; resume home metoprolol heparin drip initially started instead of resuming eliquis given worsening renal function and possibility of needing HD cath placement renal function improved / not needing HD, so will switch to eliquis 2,5mg bid 07/02 rate controlled transaminitis AST 78 / ALT 78 / ALP 118 on admission rising CPK unclear etiology, ?rhabdo, breakdown, ?dehydrated, statin-induced? patient is on statin and acarbose, held on admission Trend LFTS; LFTs improving trend cpk; slightly worse 07/02 Hypertension Hyperlipidemia confirm home meds, hold for now hx of IDDM2 A1c 5.6-7.1% over past 1+ year confirm home meds. Glc readings mostly wnl in low 100s this hospitalization VTE: heparin drip (started 06/29) Code: Full Dispo: Home, ~2-3 days Pending renal function improves, LFTs
[2023-07-03 09:53] LABS: Hematocrit 42.3 % (39.6-49.0); Hemoglobin 14.3 g/dL (13.6-17.9); MCH 29.9 pg (27.0-35.0); MCHC 33.7 g/dL (32.0-36.0); MCV 88.6 fL (80-100); MPV 9.1 fL (7.6-11.3); Platelets 173 thou/uL (152-406); RBC Red Blood Cell Count 4.77 M/uL (4.33-5.43); Red Cell Distribution Width 14.3 % (12.1-15.2)
[2023-07-03 10:18] LABS: Albumin 2.6 g/dL (3.4-5.0); Albumin/Globulin Ratio 0.7 (1.1-1.8); Anion Gap 9.6 mEq/L (5.0-15.0); Bilirubin Total 0.5 mg/dL (0.2-1.0); Globulin 3.7 g/dL (2.3-3.5); Magnesium 1.8 mg/dL (1.6-2.4); Potassium 3.6 mEq/L (3.5-5.1); Protein, Total 6.3 g/dL (6.4-8.2)
[2023-07-03] MEDS: POTASSIUM CL SA 10 MEQ TAB PO ONE (12:29)
[2023-07-03] MEDS: NACHLORIDE 0.45% 1,000 ML IV SCH (12:29)
--- NOTE | 2023-07-03 13:59 | P.PN ---
Date of Service: 07/03/23 Vital Signs Temp Pulse Resp BP Pulse Ox 97.3 F 94 H 16 144/98 H 96 07/03/23 12:00 07/03/23 12:00 07/03/23 12:00 07/03/23 12:00 07/03/23 12:00 Medications Acetaminophen (Acetaminophen 500 Mg Tab) 500 mg PO Q6H PRN PRN Reason: Pain scale 2-4 (Mild)/Fever Hydrocodone Bitart/Acetaminophen (Hydrocodone/Apap 10/325 Tab) 1 tab PO Q6H PRN PRN Reason: Pain scale 5-7 (Moderate) Last Admin: 07/03/23 08:32 Dose: 1 tab Heparin Sodium/Dextrose (Heparin Drip 25,000 Units/5oo Ml Premix) 25,000 unit in 500 mls @ 0 mls/hr IV UD [facility]; Protocol Last Admin: 07/02/23 21:02 Dose: 500 mls Sodium Chloride (Sodium Chloride 0.45%) 1,000 mls @ 100 mls/hr IV .Q10H [facility] Last Admin: 07/03/23 12:29 Dose: 1,000 mls Melatonin (Melatonin 3 Mg Tablet) 6 mg PO BEDTIME [facility] Last Admin: 07/02/23 21:00 Dose: 6 mg Metoprolol Tartrate (Metoprolol Tar 50 Mg Tab) 50 mg PO DAILY [facility] Last Admin: 07/03/23 08:32 Dose: 50 mg Morphine Sulfate (Morphine 2 Mg/Ml Syr) 2 mg IV Q4H PRN PRN Reason: Pain scale 8-10 (Severe) Last Admin: 07/03/23 12:39 Dose: 2 mg Ondansetron HCl (Ondansetron 4 Mg/2 Ml Vial) 4 mg IV Q4H PRN PRN Reason: NAUSEA / VOMITING Tamsulosin HCl (Tamsulosin 0.4 Mg Sr Cap) 0.8 mg PO BEDTIME [facility] Last Admin: 07/02/23 21:03 Dose: 0.8 mg Assessment/ Plan: Nephrology Progress Note No Dyspnea No Chest Pain Smell of urine noted No Acute Events Overnight Vital Signs, Medications, Blood Work, and Imaging reviewed in the chart NAD. Obese. NCAT. MMM. Neck Supple. Normal Respiratory Effort. RRR. Abd ND. No C/C. LE Edema none. No Rash. AAO. Normal Speech. Assessment & Plan Stage III KIKI may be multifactorial complicated by hypovolemia CKD III with Proteinuria BL small kidneys -No NSAIDs -Change IVF 1/2NS Rhabdomyolysis, mild -Continue IVF Hypokalemia -Replete as ordered HTN with CKD -Continue Metoprolol DM II with CKD -Low sugar diet -Check A1C Transaminitis -Monitor Levels Hypoalbuminemia -Encouarge nutrition BPH with LUTS -Continue tamsulosin Case reviewed with Dr. Yeung EXAM DESCRIPTION: US - Renal Ultrasound-Complete - 06/29/2023 10:00 pm CLINICAL HISTORY: rule out obstruction COMPARISON: Abdomen Pelvis Wo Contrast dated 10/31/2015 TECHNIQUE: Sonographic grayscale and color flow images of the kidneys and bladder were obtained. FINDINGS: Both kidneys are small in size specially on the right, with diffusely increased cortical echogenicity and poor corticomedullary differentiation. The right kidney measures 5.8 cm in long axis. No hydronephrosis, focal mass, or echogenic calculi. The left kidney measures 8.9 cm in long axis. Parapelvic 1.8 cm anechoic cyst. No hydronephrosis, focal mass, or echogenic calculi. The urinary bladder is without gross abnormality seen. Moderate prostatomegaly. IMPRESSION: Atrophic changes of the kidneys with increased cortical ec hogenicity, findings suggestive of chronic renal disease LEFT VENTRICULAR WALL MOTION: NORMAL DOPPLER/COLOR FLOW: SEE BELOW COMMENTS: 1. NORMAL LEFT VENTRICULAR EJECTION FRACTION 60-65% 2. ATRIAL FIBRILLATION 3. SEVERELY DILATED LEFT ATRIUM 4. MILD CONCENTRIC LEFT VENTRICULAR HYPERTROPHY 5. MILD TRICUSPID REGURGITATION 6. MILD MITRAL REGURGITATION
[2023-07-03 20:20] LABS: Ionized Calcium 5.1 mg/dL (4.7-5.5)
[2023-07-03] MEDS: APIXABAN 2.5 MG TABLET PO SCH (20:34)
[2023-07-04 05:13] LABS: UR PROTEIN 90.1 mg/dL (<11.9); Urine Protein/Creatinine Ratio 1.53 ratio (<0.15)
[2023-07-04 05:44] LABS: UR MICROALBUMIN 7.2 mg/dL (< 1.9)
[2023-07-04 05:47] LABS: Specific Gravity 1.013 (1.005-1.030); Sqamous Epithelial <5 /HPF (None Seen); Urine Bacteria None Seen /HPF (<20); Urine Bilirubin NEGATIVE (Negative); Urine Blood 3+ (OVER) (Negative); Urine Clarity Extremely Turbid (Clear); Urine Color Light-Yellow (Yellow); Urine Culture Reflex Order NOT NEEDED; Urine Glucose TRACE (Negative); Urine Granular Casts 0-5 /LPF (None Seen); Urine Ketones NEGATIVE (Negative); Urine Micro Reflex YN NO BILL MICROSCOPIC; Urine Nitrite NEGATIVE (Negative); Urine Protein 1+ (Negative); Urine RBC None Seen /HPF (None Seen); Urine Urobilinogen Normal (Normal); Urine WBC <5 /HPF (<5); Urine pH 5.5 (5.0-7.0)
[2023-07-04] MEDS: APIXABAN 5 MG TABLET PO SCH (09:16)
[2023-07-04 10:49] LABS: Complement C3 162 mg/dL (***)
[2023-07-04 11:29] LABS: Hematocrit 40.9 % (39.6-49.0); Hemoglobin 13.6 g/dL (13.6-17.9); MCH 29.6 pg (27.0-35.0); MCHC 33.3 g/dL (32.0-36.0); MCV 88.8 fL (80-100); Platelets 210 thou/uL (152-406); Red Cell Distribution Width 14.1 % (12.1-15.2)
[2023-07-04 12:11] LABS: Albumin 2.5 g/dL (3.4-5.0); Albumin/Globulin Ratio 0.7 (1.1-1.8); Anion Gap 8.7 mEq/L (5.0-15.0); Bilirubin Total 0.5 mg/dL (0.2-1.0); Globulin 3.6 g/dL (2.3-3.5); Magnesium 1.8 mg/dL (1.6-2.4); Potassium 3.7 mEq/L (3.5-5.1); Protein, Total 6.1 g/dL (6.4-8.2); Uric Acid 3.2 mg/dL (3.5-7.2)
--- NOTE | 2023-07-04 17:50 | P.PN ---
Subjective Date of Service: 07/04/23 Chief Complaint: Acute kidney injury Patient reports back pain. He denies any difficulty with voiding. He stated he fell a couple of times at home. Physical Examination - Vital Signs Temperature: 97.4 F Blood Pressure: 176/74 Pulse: 79 Respirations: 14 Pulse Ox (%): 97 Assessment And Plan - Plan Physical Exam: GEN: Alert, oriented, NAD HEENT: Anicteric sclera CV: irregularly irregular rhythm, trace b/l pedal edema Pulm: Adequate breath sounds bilaterally, clear to auscultation bilaterally ABD: soft, nontender, nondistended Neuro: Normal speech, normal affect. No focal motor deficit. Problem List: KIKI on chronic kidney disease stage III elevated CPK NSTEMI Atrial fibrillation, chronic Chronic diastolic CHF HFpEF transaminitis Hypertension Hyperlipidemia hx of IDDM2 KIKI on CKD3 elevated CPK Patient reports worsening weakness. Patient reports a couple of falls at home. Difficulty urinating in ED, 600cc after straight cath renal u/s (06/28): atrophic changes of kidneys with increased cortical echogenicity. Nephrology is following. Serum creatinine is trending down slowly. No indication for hemodialysis at this time per nephrology. Nephrology is managing with IV hydration. elevated cpk -possibly related to prior falls at home. continue to monitor renal function PRN analgesics / antiemetics NSTEMI, suspect demand ischemia Atrial fibrillation, chronic Chronic diastolic CHF CXR (06/28): no acute findings troponins elevated, monitor on telemetry Cardiology input appreciated. Patient initially on heparin drip for A-fib anticoagulation. Later transitioned to Eliquis Continue metoprolol. Transaminitis Likely related to elevated CK. Fluctuations in levels correlate with CK trend. Continue to monitor. Hypertension Continue metoprolol Hydralazine as needed for BP spikes. Hyperlipidemia Statins on hold due to elevated LFT and CK. hx of IDDM2 Blood glucose within acceptable range. VTE: Eliquis Code: Full Dispo: Home.
--- NOTE | 2023-07-04 21:11 | P.PN ---
Date of Service: 07/04/23 Vital Signs Temp Pulse Resp BP Pulse Ox 97.1 F 70 16 139/77 97 07/04/23 19:50 07/04/23 19:50 07/04/23 19:50 07/04/23 19:50 07/04/23 19:50 Medications Acetaminophen (Acetaminophen 500 Mg Tab) 500 mg PO Q6H PRN PRN Reason: Pain scale 2-4 (Mild)/Fever Hydrocodone Bitart/Acetaminophen (Hydrocodone/Apap 10/325 Tab) 1 tab PO Q6H PRN PRN Reason: Pain scale 5-7 (Moderate) Last Admin: 07/04/23 17:16 Dose: 1 tab Apixaban (Apixaban 5 Mg Tablet) 5 mg PO BID [facility] Last Admin: 07/04/23 20:07 Dose: 5 mg Sodium Chloride (Sodium Chloride 0.45%) 1,000 mls @ 100 mls/hr IV .Q10H [facility] Last Admin: 07/04/23 09:00 Dose: Not Given Melatonin (Melatonin 3 Mg Tablet) 6 mg PO BEDTIME [facility] Last Admin: 07/04/23 20:07 Dose: 6 mg Metoprolol Tartrate (Metoprolol Tar 50 Mg Tab) 50 mg PO DAILY [facility] Last Admin: 07/04/23 09:16 Dose: 50 mg Morphine Sulfate (Morphine 2 Mg/Ml Syr) 2 mg IV Q4H PRN PRN Reason: Pain scale 8-10 (Severe) Last Admin: 07/04/23 13:37 Dose: 2 mg Ondansetron HCl (Ondansetron 4 Mg/2 Ml Vial) 4 mg IV Q4H PRN PRN Reason: NAUSEA / VOMITING Tamsulosin HCl (Tamsulosin 0.4 Mg Sr Cap) 0.8 mg PO BEDTIME [facility] Last Admin: 07/04/23 20:06 Dose: 0.8 mg Assessment/ Plan: Nephrology Progress Note No Dyspnea No Chest Pain No Acute Events Overnight Vital Signs, Medications, Blood Work, and Imaging reviewed in the chart NAD. Obese. NCAT. MMM. Neck Supple. Normal Respiratory Effort. RRR. Abd ND. No C/C. LE Edema none. No Rash. AAO. Normal Speech. Assessment & Plan Stage III KIKI may be multifactorial complicated by hypovolemia CKD III with Proteinuria BL small kidneys -No NSAIDs -Continue IVF 1/2NS Rhabdomyolysis, mild -Continue IVF Hypokalemia -Replete prn HTN with CKD -Continue Metoprolol DM II with CKD A1C 6.9 -Low sugar diet Transaminitis -Monitor Levels Hypoalbuminemia -Encouarge nutrition BPH with LUTS -Continue tamsulosin Hospitalist note reviewed EXAM DESCRIPTION: US - Renal Ultrasound-Complete - 06/29/2023 10:00 pm CLINICAL HISTORY: rule out obstruction COMPARISON: Abdomen Pelvis Wo Contrast dated 10/31/2015 TECHNIQUE: Sonographic grayscale and color flow images of the kidneys and bladder were obtained. FINDINGS: Both kidneys are small in size specially on the right, with diffusely increased cortical echogenicity and poor corticomedullary differentiation. The right kidney measures 5.8 cm in long axis. No hydronephrosis, focal mass, or echogenic calculi. The left kidney measures 8.9 cm in long axis. Parapelvic 1.8 cm anechoic cyst. No hydronephrosis, focal mass, or echogenic calculi. The urinary bladder is without gross abnormality seen. Moderate prostatomegaly. IMPRESSION: Atrophic changes of the kidneys with increased cortical echogenicity, findings suggestive of chronic renal disease LEFT VENTRICULAR WALL MOTION: NORMAL DOPPLER/COLOR FLOW: SEE BELOW COMMENTS: 1. NORMAL LEFT VENTRICULAR EJECTION FRACTION 60-65% 2. ATRIAL FIBRILLATION 3. SEVERELY DILATED LEFT ATRIUM 4. MILD CONCENTRIC LEFT VENTRICULAR HYPERTROPHY 5. MILD TRICUSPID REGURGITATION 6. MILD MITRAL REGURGITATION
[2023-07-05 00:47] LABS: C-ANCA Anti-Proteinase 3 <1.0 AI (<1.0); P-ANCA Anti-Myeloperoxidase Ab <1.0 AI (<1.0)
[2023-07-05 07:14] LABS: Absolute Basophils 0.1 K/uL (0-0.5); Absolute Eosinophils 0.3 K/uL (0-0.5); Absolute Lymphocytes (CBC) 1.3 K/uL (0.7-4.9); Absolute Monocytes 1.4 K/uL (0.1-1.3); Absolute Neutrophil 9.7 K/uL (1.8-8.0); Basophils % 0.7 % (0-1.3); Hematocrit 39.8 % (39.6-49.0); Hemoglobin 13.2 g/dL (13.6-17.9); Lymphocytes % 10.3 % (15.3-44.8); MCH 29.6 pg (27.0-35.0); MCHC 33.2 g/dL (32.0-36.0); MCV 89.1 fL (80-100); MPV 9.1 fL (7.6-11.3); Monocytes % 11.3 % (3.3-12.3); Neutrophils % 75.7 % (41.7-73.7); Platelets 193 thou/uL (152-406); RBC Red Blood Cell Count 4.47 M/uL (4.33-5.43); Red Cell Distribution Width 14.4 % (12.1-15.2)
[2023-07-05 07:32] LABS: Albumin 2.4 g/dL (3.4-5.0); Albumin/Globulin Ratio 0.6 (1.1-1.8); Anion Gap 10.7 mEq/L (5.0-15.0); Bilirubin Total 0.5 mg/dL (0.2-1.0); Globulin 3.7 g/dL (2.3-3.5); Potassium 3.7 mEq/L (3.5-5.1); Protein, Total 6.1 g/dL (6.4-8.2)
[2023-07-05] MEDS: TIZANIDINE 4 MG TABLET PO ONE (10:27)
--- NOTE | 2023-07-05 18:08 | P.PN ---
Subjective Date of Service: 07/05/23 Chief Complaint: Acute kidney injury Patient reports intermittent back pain. He has no other complaint. Physical Examination - Vital Signs Temperature: 97.1 F Blood Pressure: 145/68 Pulse: 69 Respirations: 16 Pulse Ox (%): 98 Assessment And Plan - Plan Physical Exam: GEN: Alert, oriented, NAD CV: irregularly irregular rhythm, trace b/l pedal edema Pulm: Adequate breath sounds bilaterally, clear to auscultation bilaterally ABD: soft, nontender, nondistended Neuro: Normal speech, normal affect. No focal motor deficit. Diagnosis KIKI on chronic kidney disease stage III elevated CPK NSTEMI Atrial fibrillation, chronic Chronic diastolic heart failure Transaminitis Hypertension Hyperlipidemia hx of IDDM2 Acute urinary retention KIKI on CKD3 Elevated CPK Transaminitis Acute urinary retention Patient reports worsening weakness. Patient reports a couple of falls at home. Acute urinary retention in the ED, now resolved. renal u/s (06/28): atrophic changes of kidneys with increased cortical echogenicity. Nephrology is following. Serum creatinine is improving. No indication for hemodialysis at this time per nephrology. Nephrology is managing with IV hydration. elevated cpk -possibly related to prior falls at home. Transaminitis likely related to elevated CK. Continue to monitor. continue to monitor renal function PRN analgesics / antiemetics NSTEMI. Atrial fibrillation, chronic Chronic diastolic CHF CXR (06/28): no acute findings troponins elevated. Elevated troponin deemed secondary to demand ischemia Cardiology input appreciated. Patient initially on heparin drip for A-fib anticoagulation. Later transitioned to Eliquis Continue metoprolol. Hypertension Continue metoprolol Hydralazine as needed for BP spikes. Hyperlipidemia Statins on hold due to elevated LFT and CK. hx of IDDM2 Blood glucose within acceptable range. Impaired mobility Continue PT May need to disposition to skilled rehab VTE: Eliquis Code: Full Dispo:SNF
[2023-07-05 19:51] LABS: Magnesium 1.5 mg/dL (1.6-2.4); Phosphorus 3.4 mg/dL (2.5-4.9)
[2023-07-05] MEDS: LABETALOL 20 MG/4ML SYRINGE IV PRN (20:53)
--- NOTE | 2023-07-05 21:26 | P.PN ---
Date of Service: 07/05/23 Vital Signs Temp Pulse Resp BP Pulse Ox 97.1 F 83 20 198/88 H 97 07/05/23 18:16 07/05/23 20:53 07/05/23 20:47 07/05/23 20:53 07/05/23 20:47 Medications Acetaminophen (Acetaminophen 500 Mg Tab) 500 mg PO Q6H PRN PRN Reason: Pain scale 2-4 (Mild)/Fever Hydrocodone Bitart/Acetaminophen (Hydrocodone/Apap 10/325 Tab) 1 tab PO Q6H PRN PRN Reason: Pain scale 5-7 (Moderate) Last Admin: 07/05/23 20:11 Dose: 1 tab Apixaban (Apixaban 5 Mg Tablet) 5 mg PO BID [facility] Last Admin: 07/05/23 20:47 Dose: 5 mg Sodium Chloride (Sodium Chloride 0.45%) 1,000 mls @ 100 mls/hr IV .Q10H [facility] Last Admin: 07/05/23 20:46 Dose: 1,000 mls Labetalol HCl (Labetalol 20 Mg/4ml Syringe) 10 mg IV Q4H PRN PRN Reason: Goal to achieve SBP in comment Last Admin: 07/05/23 20:53 Dose: 10 mg Melatonin (Melatonin 3 Mg Tablet) 6 mg PO BEDTIME [facility] Last Admin: 07/05/23 20:47 Dose: 6 mg Metoprolol Tartrate (Metoprolol Tar 50 Mg Tab) 50 mg PO DAILY [facility] Last Admin: 07/05/23 08:23 Dose: 50 mg Morphine Sulfate (Morphine 2 Mg/Ml Syr) 2 mg IV Q4H PRN PRN Reason: Pain scale 8-10 (Severe) Last Admin: 07/05/23 20:47 Dose: 2 mg Ondansetron HCl (Ondansetron 4 Mg/2 Ml Vial) 4 mg IV Q4H PRN PRN Reason: NAUSEA / VOMITING Tamsulosin HCl (Tamsulosin 0.4 Mg Sr Cap) 0.8 mg PO BEDTIME [facility] Last Admin: 07/05/23 20:47 Dose: 0.8 mg Assessment/ Plan: Nephrology Progress Note No Dyspnea No Chest Pain Persistent weakness and fatigue Worsening low back pain No Acute Events Overnight Vital Signs, Medications, Blood Work, and Imaging reviewed in the chart NAD. Obese. NCAT. MMM. Neck Supple. Normal Respiratory Effort. RRR. Abd ND. No C/C. LE Edema none. No Rash. AAO. Normal Speech. Assessment & Plan Stage III KIKI may be multifactorial complicated by hypovolemia CKD III with Proteinuria BL small kidneys -No NSAIDs -Continue IVF 1/2NS Rhabdomyolysis, mild -Continue IVF Hypokalemia -Replete prn Hypomagnesemia -Start SloMag HTN with CKD -Continue Metoprolol DM II with CKD A1C 6.9 -Low sugar diet Transaminitis -Monitor Levels Hypoalbuminemia -Encouarge nutrition BPH with LUTS -Continue tamsulosin Case reviewed with Dr. Osborne EXAM DESCRIPTION: US - Renal Ultrasound-Complete - 06/29/2023 10:00 pm CLINICAL HISTORY: rule out obstruction COMPARISON: Abdomen Pelvis Wo Contrast dated 10/31/2015 TECHNIQUE: Sonographic grayscale and color flow images of the kidneys and bladder were obtained. FINDINGS: Both kidneys are small in size specially on the right, with diffusely increased cortical echogenicity and poor corticomedullary differentiation. The right kidney measures 5.8 cm in long axis. No hydronephrosis, focal mass, or echogenic calculi. The left kidney measures 8.9 cm in long axis. Parapelvic 1.8 cm anechoic cyst. No hydronephrosis, focal mass, or echogenic calculi. The urinary bladder is without gross abnormality seen. Moderate prostatomegaly. IMPRESSION: Atrophic changes of the kidneys with increased cortical echogenicity, findings suggestive of chronic renal disease LEFT VENTRICULAR WALL MOTION: NORMAL DOPPLER/COLOR FLOW: SEE BELOW COMMENTS: 1. NORMAL LEFT VENTRICULAR EJECTION FRACTION 60-65% 2. ATRIAL FIBRILLATION 3. SEVERELY DILATED LEFT ATRIUM 4. MILD CONCENTRIC LEFT VENTRICULAR HYPERTROPHY 5. MILD TRICUSPID REGURGITATION 6. MILD MITRAL REGURGITATION
[2023-07-05] MEDS: MAGNESIUM CHLORIDE 64 MG TAB PO SCH (21:30)
[2023-07-06 05:42] LABS: Anti-Nuclear Antibody Screen Negative (Negative)
[2023-07-06 07:38] LABS: Albumin 2.3 g/dL (3.4-5.0); Anion Gap 8.6 mEq/L (5.0-15.0); Phosphorus 3.4 mg/dL (2.5-4.9); Potassium 3.6 mEq/L (3.5-5.1)
[2023-07-06] MEDS: TIZANIDINE 4 MG TABLET PO ONE (11:32)
[2023-07-06] MEDS: POTASSIUM 25 MEQ EFFERV TAB FT ONE (11:33)
--- NOTE | 2023-07-06 17:37 | P.PN ---
Subjective Date of Service: 07/06/23 Chief Complaint: Acute kidney injury Patient reports intermittent back pain. Patient is having difficulty finding with PT. Currently maximum assist with transfers. Physical Examination - Vital Signs Temperature: 98.1 F Blood Pressure: 121/70 Pulse: 71 Respirations: 16 Pulse Ox (%): 99 Assessment And Plan - Plan Physical Exam: GEN: Alert, oriented, NAD CV: irregularly irregular rhythm, trace b/l pedal edema Pulm: Adequate breath sounds bilaterally, clear to auscultation bilaterally ABD: soft, nontender, nondistended Neuro: Normal speech, normal affect. No focal motor deficit. Diagnosis KIKI on chronic kidney disease stage III elevated CPK NSTEMI Atrial fibrillation, chronic Chronic diastolic heart failure Transaminitis Hypertension Hyperlipidemia hx of IDDM2 Acute urinary retention KIKI on CKD3 Elevated CPK Transaminitis Acute urinary retention Multiple falls Acute urinary retention in the ED, now resolved. renal u/s (06/28): atrophic changes of kidneys with increased cortical echogenicity. Nephrology is following. Serum creatinine continue to improve. No indication for hemodialysis at this time per nephrology. Nephrology is managing with IV hydration. elevated cpk -possibly related to prior falls at home. Transaminitis likely related to elevated CK. Continue to monitor. PRN analgesics-morphine and [place]. NSTEMI. Atrial fibrillation, chronic Chronic diastolic CHF CXR (06/28): no acute findings troponins elevated. Elevated troponin deemed secondary to demand ischemia Cardiology input appreciated. Patient initially on heparin drip for A-fib anticoagulation. Later transitioned to Eliquis Continue metoprolol. Hypertension Continue metoprolol Hydralazine as needed for BP spikes. Hyperlipidemia Statins on hold due to elevated LFT and CK. hx of IDDM2 Blood glucose within acceptable range. Impaired mobility Continue PT Service assisting with arrangement for skilled rehab. VTE: Eliquis Code: Full Dispo:SNF
--- NOTE | 2023-07-06 21:28 | P.PN ---
Date of Service: 07/06/23 Vital Signs Temp Pulse Resp BP Pulse Ox 98.1 F 71 16 121/70 99 07/06/23 17:50 07/06/23 17:50 07/06/23 20:38 07/06/23 17:50 07/06/23 20:38 Medications Acetaminophen (Acetaminophen 500 Mg Tab) 500 mg PO Q6H PRN PRN Reason: Pain scale 2-4 (Mild)/Fever Hydrocodone Bitart/Acetaminophen (Hydrocodone/Apap 7.5/325 Mg Tab) 1 tab PO Q4H PRN PRN Reason: Pain scale 5-7 (Moderate) Apixaban (Apixaban 5 Mg Tablet) 5 mg PO BID [facility] Last Admin: 07/06/23 20:39 Dose: 5 mg Sodium Chloride (Sodium Chloride 0.45%) 1,000 mls @ 100 mls/hr IV .Q10H [facility] Last Admin: 07/06/23 18:39 Dose: 1,000 mls Labetalol HCl (Labetalol 20 Mg/4ml Syringe) 10 mg IV Q4H PRN PRN Reason: Goal to achieve SBP in comment Last Admin: 07/05/23 20:53 Dose: 10 mg Magnesium Chloride (Magnesium Chloride 64 Mg Tab) 64 mg PO BEDTIME [facility] Last Admin: 07/06/23 20:39 Dose: 64 mg Melatonin (Melatonin 3 Mg Tablet) 6 mg PO BEDTIME [facility] Last Admin: 07/06/23 20:39 Dose: 6 mg Metoprolol Tartrate (Metoprolol Tar 50 Mg Tab) 50 mg PO DAILY [facility] Last Admin: 07/06/23 08:25 Dose: 50 mg Morphine Sulfate (Morphine 2 Mg/Ml Syr) 2 mg IV Q4H PRN PRN Reason: Pain scale 8-10 (Severe) Last Admin: 07/06/23 20:38 Dose: 2 mg Ondansetron HCl (Ondansetron 4 Mg/2 Ml Vial) 4 mg IV Q4H PRN PRN Reason: NAUSEA / VOMITING Tamsulosin HCl (Tamsulosin 0.4 Mg Sr Cap) 0.8 mg PO BEDTIME [facility] Last Admin: 07/06/23 20:38 Dose: 0.8 mg Assessment/ Plan: Nephrology Progress Note No Dyspnea No Chest Pain Persistent weakness and fatigue Persistent low back pain No Acute Events Overnight Vital Signs, Medications, Blood Work, and Imaging reviewed in the chart NAD. Obese. NCAT. MMM. Neck Supple. Normal Respiratory Effort. RRR. Abd ND. No C/C. Hip Edema trace. No Rash. AAO. Normal Speech. Assessment & Plan Stage III KIKI may be multifactorial complicated by hypovolemia CKD III with Proteinuria BL small kidneys -No NSAIDs -Continue IVF 1/2NS Rhabdomyolysis, mild -Continue IVF Hypokalemia -Replete potassium Hypomagnesemia -Continue SloMag HTN with CKD -Continue Metoprolol DM II with CKD A1C 6.9 -Low sugar diet Transaminitis -Monitor Levels Hypoalbuminemia -Encouarge nutrition BPH with LUTS -Continue tamsulosin Case reviewed with Dr. Osborne Plan for rehab EXAM DESCRIPTION: US - Renal Ultrasound-Complete - 06/29/2023 10:00 pm CLINICAL HISTORY: rule out obstruction COMPARISON: Abdomen Pelvis Wo Contrast dated 10/31/2015 TECHNIQUE: Sonographic grayscale and color flow images of the kidneys and bladder were obtained. FINDINGS: Both kidneys are small in size specially on the right, with diffusely increased cortical echogenicity and poor corticomedullary differentiation. The right kidney measures 5.8 cm in long axis. No hydronephrosis, focal mass, or echogenic calculi. The left kidney measures 8.9 cm in long axis. Parapelvic 1.8 cm anechoic cyst. No hydronephrosis, focal mass, or echogenic calculi. The urinary bladder is without gross abnormality seen. Moderate prostatomegaly. IMPRESSION: Atrophic changes of the kidneys with increased cortical echogenicity, findings suggestive of chronic renal disease LEFT VENTRICULAR WALL MOTION: NORMAL DOPPLER/COLOR FLOW: SEE BELOW COMMENTS: 1. NORMAL LEFT VENTRICULAR EJECTION FRACTION 60-65% 2. ATRIAL FIBRILLATION 3. SEVERELY DILATED LEFT ATRIUM 4. MILD CONCENTRIC LEFT VENTRICULAR HYPERTROPHY 5. MILD TRICUSPID REGURGITATION 6. MILD MITRAL REGURGITATION
[2023-07-07 07:36] LABS: Albumin 2.2 g/dL (3.4-5.0)
[2023-07-07] MEDS: HYDROCODONE/APAP 7.5/325 MG TAB PO PRN (08:22)
[2023-07-07 08:45] VITALS: BP 146/76
--- NOTE | 2023-07-07 09:11 | P.DS ---
Admission Date: 06/29/23 Discharge Date: 07/07/23 Disposition: TRANSFER TO SNF - REHAB Discharge Condition: FAIR Reason for Admission: Acute kidney injury Brief History of Present Illness: Patient is an 83-year-old gentleman with a history of hypertension and diabetes presented to the ER because he has been told that he had abnormal lab results and his creatinine had gone up to 5.0. He has been feeling really weak, and they wanted to see her primary care provider. Patient had a urine analysis and other lab workup done. There were told that he had a urinary tract infection as well as acute renal failure. Patient was advised to come to the emergency room. In the ER his creatinine is greater than 5.0. A year ago his creatinine was 1.3. He denied any flank tenderness. He was admitted to the hospital for further evaluation and management of acute kidney injury. Hospital Course: Patient admitted to the medical floor and the following medical problems addressed: Diagnosis KIKI on chronic kidney disease stage III elevated CPK NSTEMI Atrial fibrillation, chronic Chronic diastolic heart failure Transaminitis Hypertension Hyperlipidemia hx of IDDM2 Acute urinary retention KIKI on CKD3 Elevated CPK Transaminitis Acute urinary retention Multiple falls Patient had acute urinary retention in the ED which later resolved. renal u/s (06/28): atrophic changes of kidneys with increased cortical echogenicity. Nephrology evaluated patient and assisted with management. KIKI significantly improved with IV hydration. No indication for hemodialysis at this time per nephrology. Patient has elevated cpk -possibly related to prior falls at home. He also transaminitis likely related to elevated CK. He is not analgesics-opioids as needed for pain. NSTEMI. Atrial fibrillation, chronic Chronic diastolic CHF CXR (06/28): no acute findings troponins elevated. Patient seen by cardiology and elevated troponin deemed secondary to demand ischemia Patient initially on heparin drip for A-fib anticoagulation. Later transitioned to Eliquis Continued metoprolol. Hypertension Continued metoprolol Hydralazine as needed for BP spikes. Hyperlipidemia Statins were held due to elevated LFT and CK. Patient reports that multiple falls at home which could explain the elevated CK and associated elevated LFTs hx of IDDM2 Blood glucose within acceptable range. Patient did not require insulin coverage. Impaired mobility Patient seen and evaluated by PT. He was needing significant assistance even with transfers He has been accepted to [facility] for skilled rehab. Patient deemed clinically stable for discharge. Vital Signs/Physical Exam: Temp Pulse Resp BP Pulse Ox 97.3 F 71 16 146/76 H 97 07/07/23 04:00 07/07/23 08:22 07/07/23 08:22 07/07/23 08:22 07/07/23 08:22 General: Alert, In no apparent distress, Oriented x3, Obese HEENT: Mucous membr. moist/pink, Sclerae nonicteric Neck: JVD not distended Respiratory: Clear to auscultation bilaterally, Normal air movement Cardiovascular: Normal S1 S2, Edema (Trace bilateral lower extremity edema), Irregular heart rate/rhythm Gastrointestinal: Normal bowel sounds, Soft and benign, Non-distended, No tenderness Musculoskeletal: No swelling Integumentary: No rashes, No cyanosis Neurological: Normal strength at 5/5 x4 extr Laboratory Data at Discharge: WBC 12.80 thou/uL (4.3-10.9) H 07/05/23 06:54 Hgb 13.2 g/dL (13.6-17.9) L 07/05/23 06:54 Hct 39.8 % (39.6-49.0) 07/05/23 06:54 Plt Count 193 thou/uL (152-406) 07/05/23 06:54 PT 18.3 SECONDS (9.5-12.5) H 06/30/23 07:41 INR 1.69 06/30/23 07:41 APTT 45.1 SECONDS (24.3-36.9) H 07/03/23 16:26 Sodium 136 mEq/L (136-145) 07/07/23 07:13 Potassium 4.0 mEq/L (3.5-5.1) 07/07/23 07:13 BUN 58 mg/dL (7-18) H 07/07/23 07:13 Creatinine 2.28 mg/dL (0.70-1.30) H 07/07/23 07:13 Glucose 136 mg/dL (74-106) H 07/07/23 07:13 Uric Acid 3.2 mg/dL (3.5-7.2) L 07/04/23 11:14 Phosphorus 3.0 mg/dL (2.5-4.9) 07/07/23 07:13 Magnesium 1.5 mg/dL (1.6-2.4) L 07/05/23 17:58 Total Bilirubin 0.5 mg/dL (0.2-1.0) 07/05/23 06:54 AST 120 U/L (15-37) H 07/05/23 06:54 ALT 111 U/L (16-61) H 07/05/23 06:54 Alkaline Phosphatase 81 U/L (45-117) 07/05/23 06:54 Home Medications: Acarbose [Precose] 25 mg PO TID 06/30/23 Apixaban [Eliquis] 5 mg PO BID 06/30/23 Lovastatin 40 mg PO BEDTIME 06/30/23 Melatonin 6 mg PO BEDTIME 06/30/23 Metoprolol Tartrate 50 mg PO DAILY 06/30/23 Tamsulosin HCl 0.8 mg PO BEDTIME 06/30/23 Hydrocodone 10/APAP 325 [[place] 10/325*] 1 tab PO Q6H PRN #15 tab 07/07/23 Magnesium Chloride [Slow-Mag*] 64 mg PO BEDTIME #0 tab 07/07/23 Pregabalin [Lyrica] 75 mg PO BID #60 cap 07/07/23 New Medications: Pregabalin [Lyrica] 75 mg PO BID #60 cap Hydrocodone 10/APAP 325 [[place] 10/325*] 1 tab PO Q6H PRN #15 tab PRN Reason: Pain Diet: ADA Activity: Fall precautions Followup: Crow Ramirez DO [Primary Care Provider] - (Within 2 weeks) Time spent managing pt's care (in minutes): 40
[2023-07-07 09:22] VITALS: O2SAT 97
[2023-07-07 09:23] VITALS: TEMP 97.2
--- NOTE | 2023-07-07 12:06 | P.PN ---
(S) Pt reports doing fair, denies any CP or dyspnea, plan for discharge noted General: In no apparent distress, Cooperative, Other (Appears chronically ill) HEENT: Atraumatic, Normocephalic, EOMI, Sclerae nonicteric Neck: Supple Respiratory: Normal air movement, Other (Non tachypnec, no rales ) Cardiovascular: Regular rate/rhythm, Other (No loud murmurs, rubs) Gastrointestinal: Soft and benign, Non-distended, No tenderness, No guarding Musculoskeletal: No swelling, No contractures, Other (Feel cooler to touch) Integumentary: No rashes, Other (shins smooth, shiny) Conclusions/Impression: A/P) 1. Sub-acute Stage III renal failure on underlying CKD Stage III unspecified (2nd to chronic HTN/DM). Unclear exact etiology of the dramatic worsening of calli al function since last summer but likely multifactorial and may include component of pre-renal azotemia as renal function did slowly improve 2. Renal u/s notable for small kidneys, Rt especially, echogenic and c/w more advanced medical renal disease than what his levels suggested last year. 3. will need close OP f/u for CKD 4. Urine study showed on admission some microscopic hematuria unspecified. Spot urine studies as OP including recent have not shown massive proteinuria. 5. Did send off serologic w/u with RF, WENDY, ANCA, complement and other which came back neg 6. TTE findings noted, monitor closely volume status as OP, not currently on a diuretic. Cont rate control for Afib Cuco Alvares MD, ALEXSANDER
[2023-07-07 15:50] LABS: Abnormal Protein Band 1 REPORT; Albumin, (SPE) 2.9 g/dL (3.8-4.8); Alpha-1-Globulins 0.3 g/dL (0.2-0.3); Alpha-2-Globulins 0.7 g/dL (0.5-0.9); Beta 1 Globulin 0.4 g/dL (0.4-0.6); Gamma Globulins 0.9 g/dL (0.8-1.7); INTERPRETATION REPORT; Total Protein 5.7 g/dL (6.1-8.1)
== END 2023-07-07 12:26 | DRG 682 ==
LOC: ER 18:28 → ERHOLD 23:03 → 4TH 23:45
PROVIDERS: ADMIT Hospitalist; ATTEND Internal Medicine
PROC: 0T9B70Z Drainage of Bladder with Drainage Device, Via Natural or Artificial Opening (ICD-10-PCS; principal; 2023-06-29)
DX: N17.9 Acute kidney failure, unspecified (principal); I21.A1 Myocardial infarction type 2; I13.0 Hypertensive heart and chronic kidney disease with heart failure and stage 1 through stage 4 chronic kidney disease, or unspecified chronic kidney disease; N39.0 Urinary tract infection, site not specified; I50.32 Chronic diastolic (congestive) heart failure; I48.20 Chronic atrial fibrillation, unspecified; M62.82 Rhabdomyolysis; N18.30 Chronic kidney disease, stage 3 unspecified; E11.22 Type 2 diabetes mellitus with diabetic chronic kidney disease; E83.52 Hypercalcemia; E87.6 Hypokalemia; E78.00 Pure hypercholesterolemia, unspecified; E88.09 Other disorders of plasma-protein metabolism, not elsewhere classified; N40.1 Benign prostatic hyperplasia with lower urinary tract symptoms; R33.8 Other retention of urine; R29.6 Repeated falls; R31.29 Other microscopic hematuria; R74.01 Elevation of levels of liver transaminase levels; Z79.01 Long term (current) use of anticoagulants; Z90.49 Acquired absence of other specified parts of digestive tract; Z96.652 Presence of left artificial knee joint; Z87.891 Personal history of nicotine dependence; Z79.899 Other long term (current) drug therapy
CPT/HCPCS: 36415; 71045; 76770; 80048; 80053; 80069; 80076; 81001; 82043; 82330; 82550; 82570; 82947; 83036; 83605; 83735; 83880; 84100; 84156; 84165; 84484; 84550; 85025; 85027; 85610; 85730; 86021; 86038; 86140; 86160; 86335; 86430; 93005; 93306; 97110; 97161; 97530; 99284; J2270; J7030; J7120